=== PATIENT | female | born 1985 | race Two or more races ===

== ENCOUNTER 2018-11-06 23:17 | Emergency (ER) | payer OTHER ==
[~2018-11-06] VITALS: Ht 160 cm; Wt 72.6 kg
[2018-11-06] MEDS ORDERED: SYNTHROID75 MCG (23:33)
[2018-11-07] MEDS ORDERED: KETO10TA2 PO (05:45)
== END 2018-11-07 05:56 | disposition home or self-care (01) ==
LOC: ER 23:17
DX: N28.1 Cyst of kidney, acquired (principal); N20.0 Calculus of kidney; N83.292 Other ovarian cyst, left side; N83.291 Other ovarian cyst, right side